=== PATIENT | female | born 1955 | race Caucasian/White ===

== ENCOUNTER 2017-09-19 15:55 | Emergency (ER) | payer BC ==
--- NOTE | 2017-09-19 18:03 | RAD ---
HISTORY: Trauma COMPARISONS: None TECHNIQUE: Multiple contiguous axial CT scans were obtained of the head without intravenous contrast. FINDINGS: HEMORRHAGE/INFARCT: There is no hemorrhage or acute infarct. MASSES/SHIFT: There is no mass or shift. EXTRA-AXIAL SPACES: There are no extra-axial fluid collections. SULCI AND VENTRICLES: The sulci and ventricles are normal in size and position for the patient's stated age. CEREBRUM: There are no focal parenchymal abnormalities. BRAINSTEM: There are no focal parenchymal abnormalities. CEREBELLUM: There are no focal parenchymal abnormalities. VESSELS: The vessels are grossly normal. PARANASAL SINUSES: The paranasal sinuses are clear. ORBITS: The orbits are unremarkable. BONES AND SOFT TISSUE: No bone or soft tissue abnormalities are noted. OTHER: None IMPRESSION: NO ACUTE INTRACRANIAL PATHOLOGY.
--- NOTE | 2017-09-19 18:13 | RAD ---
HISTORY: Trauma. No other history is provided. COMPARISONS: None TECHNIQUE: Multiple contiguous axial CT scans were obtained of the cervical spine without intravenous contrast, with coronal and sagittal multiplanar reformations. FINDINGS: BRAIN: The visualized brain is unremarkable CENTRAL CANAL: Evaluation of the central canal is limited on CT technique; however, there is no obvious canalicular mass or epidural hemorrhage. ALIGNMENT: The alignment is normal, without subluxation or dislocation. VERTEBRAL BODIES: There is mild anterolateral marginal osteophyte formation. There is no displaced fracture or dislocation. JOINTS: There is no subluxation or dislocation. There is mild uncovertebral and facet osteoarthritis. MUSCULATURE: Unremarkable INTERVERTEBRAL DISCS: There is diffuse loss of intervertebral disc height. AXIAL IMAGES: C2-C3: There is no osseous neural foraminal narrowing or central canal stenosis. C3-C4: There is no osseous neural foraminal narrowing or central canal stenosis. C4-C5: There is no osseous neural foraminal narrowing or central canal stenosis. C5-C6: There is severe left and moderate right neural foraminal narrowing. There is no osseous central canal stenosis. C6-C7: There is no osseous neural foraminal narrowing or central canal stenosis. C7-T1: There is no osseous neural foraminal narrowing or central canal stenosis. SOFT TISSUES: The visualized soft tissues of the neck are unremarkable. The prevertebral fat stripe is preserved. OTHER: None. IMPRESSION: 1. DEGENERATIVE DISC DISEASE AND OSTEOARTHRITIS, MOST PRONOUNCED AT C5-C6. 2. NO ACUTE OSSEOUS INJURY TO THE CERVICAL SPINE.
--- NOTE | 2017-09-19 18:17 | RAD ---
HISTORY: Trauma, back pain. No other history is provided. COMPARISONS: None TECHNIQUE: Multiple contiguous axial CT images are obtained of the pelvis, with coronal and sagittal multiplanar reconstructions, without intravenous contrast administration. FINDINGS: Evaluation is somewhat limited from metallic streak artifact from a right hip prosthesis. BONE DENSITY: Normal. BONES: The patient is status post right hip arthroplasty. There is no appreciable hardware failure or osteolysis. JOINTS: The patient is status post right hip arthroplasty. There is mild to moderate osteoarthritis of left hip with subchondral cyst formation along the acetabulum. MUSCULATURE: Unremarkable ALIGNMENT: There is no dislocation. SOFT TISSUES: There is facet osteoarthritis along the lower lumbar spine. OTHER FINDINGS: None. IMPRESSION: STATUS POST RIGHT HIP ARTHROPLASTY. NO ACUTE OSSEOUS INJURY TO THE PELVIS.
[2017-09-19 19:24] VITALS: BP 128/68
--- NOTE | 2017-09-19 21:27 | ED ---
Esther Hayes Elizabeth, scribed for Nick Roy MD on 09/19/17 at 1637 . Head Injury - HPI Summary HPI Summary: This patient is a 62 year old F presenting to [facility] via EMS with a chief complaint of a head injury that occurred earlier today when she fell backward from a standing position and hit her head. Symptoms aggravated by sitting up. Symptoms alleviated by lying down. Patient reports temporary numbness in her hands, pain in her lower back, and dizziness when sitting up. Patient denies any loss of consciousness or pain in her neck. The patient has a hx of lower back problems. - History Of Current Complaint Stated Complaint: FALL Time Seen by Provider: 09/19/17 16:02 Hx Obtained From: Patient, EMS Mechanism Of Injury: Fall From A Standing Position Onset/Duration: Started Minutes Ago, Traumatic, Still Present Onset of Pain: Post Accident Severity Currently: Moderate Severity Initially: Moderate Location of Head Injury: Occipital Aggravating Factor(s): Movement Alleviating Factor(s): Rest Associated Signs And Symptoms: Numbness - temporary numbness in both hands, Headache, Other: - negative neck pain, negative LOC - Allergies/Home Medications Allergies/Adverse Reactions: Allergies Allergy/AdvReac Type Severity Reaction Status Date / Time citalopram Allergy Unknown Verified 09/19/17 17:13 Reaction Details paroxetine Allergy Muscle Ache Verified 09/19/17 17:13 Penicillins Allergy Unknown Verified 09/19/17 17:13 Reaction Details PMH/Surg Hx/FS Hx/Imm Hx Endocrine/Hematology History: Reports: Hx Thyroid Disease - hyperthyroidism History: Reports: Hx Kidney Stones Sensory History: Reports: Hx Glaucoma - in 1 eye - Surgical History Surgery Procedure, Year, and Place: x1 hip replacement - Family History Known Family History: Positive: Unknown Review of Systems Negative: Chest Pain Negative: Shortness Of Breath Negative: Abdominal Pain Musculoskeletal: Other - Lower back pain Positive: Headache, Numbness - temporary numbness in both her hands All Other Systems Reviewed And Are Negative: Yes Physical Exam - Summary Physical Exam Summary: Appearance: The patient is well-nourished in no acute distress and in no acute pain. Skin: The skin is warm and dry and skin color reflects adequate perfusion. HEENT: The head is normocephalic and atraumatic. The pupils are equal and reactive. The conjunctivae are clear and without drainage. Nares are patent and without drainage. Mouth reveals moist mucous membranes and the throat is without erythema and exudate. The external ears are intact. The ear canals are patent and without drainage. The tympanic membranes are intact. Neck: the neck is supple with full range of motion and non-tender. There are no carotid bruits. There is no neck vein distension. Respiratory: Chest is non-tender. Lungs are clear to auscultation and breath sounds are symmetrical and equal. Cardiovascular: Heart is regular rate and rhythm. There is no murmur or rub auscultated. There is no peripheral edema and pulses are symmetrical and equal. Abdomen: The abdomen is soft and non-tender. There are normal bowel sounds heard in all four quadrants and there is no organomegaly palpated. Musculoskeletal: There is no back tenderness noted. Extremities are non-tender with full range of motion. There is good capillary refill. There is no peripheral edema or calf tenderness elicited. Neurological: Patient is alert and oriented to person, place and time. The patient has symmetrical motor strength in all four extremities. Cranial nerves are grossly intact. Deep tendon reflexes are symmetrical and equal in all four extremities. Psychiatric: The patient has an appropriate affect and does not exhibit any anxiety or depression. Triage Information Reviewed: Yes Vital Signs On Initial Exam: Initial Vitals Pulse Pulse Ox 73 95 09/19/17 16:20 09/19/17 16:20 Vital Signs Reviewed: Yes Diagnostics - Vital Signs Vital Signs Temp Pulse Resp BP Pulse Ox 09/19/17 20:03 97.9 F 68 18 128/68 99 09/19/17 19:01 67 98 09/19/17 18:59 68 128/68 100 09/19/17 18:00 78 94 09/19/17 17:00 70 09/19/17 16:30 97.9 F 67 18 133/69 96 09/19/17 16:20 73 95 - Laboratory Lab Statement: Any lab studies that have been ordered have been reviewed, and results considered in the medical decision making process. - CT CT Brain CT Interpretation: No Acute Changes - IMPRESSION: NO ACUTE INTRACRANIAL PATHOLOGY. Dr. Roy has reviewed this report. CT Interpretation Completed By: Radiologist Cervical Spine CT CT Interpretation: No Acute Changes - IMPRESSION: 1. DEGENERATIVE DISC DISEASE AND OSTEOARTHRITIS, MOST PRONOUNCED AT C5-C6. 2. NO ACUTE OSSEOUS INJURY TO THE CERVICAL SPINE. Dr. Roy has reviewed this report. CT Interpretation Completed By: Radiologist CT Pelvis CT Interpretation: No Acute Changes - IMPRESSION: STATUS POST RIGHT HIP ARTHROPLASTY. NO ACUTE OSSEOUS INJURY TO THE PELVIS. Dr. Roy has reviewed this report. CT Interpretation Completed By: Radiologist Head Injury Course/Dx Course Of Treatment: Ms. Gardner had a transient numbness to her bilateral hands after falling backwards and hitting the back of her head. She had no LOC and her hands and arms felt normal on arrival to the ED. CT scans were negative and she continued with only a mild NGUYEN as her C/O. Her N/V/M were intact. - Diagnoses Provider Diagnoses: Head injury Discharge - Sign-Out/Discharge Documenting (check all that apply): Discharge/Admit/Transfer - Discharge Plan Condition: Stable Disposition: HOME Patient Education Materials: Head Injury (ED) Referrals: [facility] [place] [facility] [Outside] - 2 Days Additional Instructions: Take ibuprofen for pain management. Follow up with primary care physician within 2 days if symptoms persist. Return to the emergency department with any new or worsening symptoms. - Billing Disposition and Condition Condition: STABLE Disposition: HOME The documentation as recorded by the Esther dyson Elizabeth accurately reflects the service I personally performed and the decisions made by , Nick Roy MD.
== END 2017-09-19 19:50 | disposition home or self-care (01) ==
LOC: ED 15:55
DX: S09.90XA Unspecified injury of head, initial encounter (principal); W19.XXXA Unspecified fall, initial encounter; Y92.9 Unspecified place or not applicable; M50.322 Other cervical disc degeneration at C5-C6 level; Z88.0 Allergy status to penicillin; Z88.8 Allergy status to other drugs, medicaments and biological substances
CPT/HCPCS: 70450; 72125; 72192; 99282